=== PATIENT | female | born 1975 ===

== ENCOUNTER 2023-09-30 19:58 | Emergency (ER) | payer OTHER, SELFPAY ==
[2023-09-30 20:05] VITALS: BP 120/73
[2023-09-30 20:18] LABS: % Basophils 0.7 % (0-2); % Eosinophils 0.4 % (0-6); % Immature Granulocytes 0.3 % (0-0.5); % Lymphocytes 32.4 % (20.5-51.1); % Neutrophils 61.2 % (42.2-75.2); Absolute Basophils 0.1 10^3/uL (0-0.2); Absolute Lymphocytes 2.4 10^3/uL (1.2-3.4); Absolute Monocytes 0.4 10^3/uL (0.1-0.6); Absolute Neutrophils 4.6 10^3/uL (1.4-6.5); Hematocrit 36.9 % (37.0-47.0); Hemoglobin 12.4 g/dL (12.0-16.0); Mean Corp Hgb Conc. 33.6 g/dL (33.0-37.0); Mean Corpuscular Hgb 27.9 pg (27.0-31.0); Mean Corpuscular Volume 83.1 fL (81.0-99.0); Mean Platelet Volume 10.4 fL (7.4-10.4); Nucleated Red Blood Cells % 0 %; Platelet Count 251 10^3/uL (130-400); Red Blood Cell Count 4.44 10^6/uL (4.20-5.40); Red Cell Dist. Width 12.5 % (11.5-14.5); White Blood Cell Count 7.4 10^3/uL (4.8-10.8)
[2023-09-30 20:36] LABS: ALT (SGPT) 18 U/L (0-35); AST (SGOT) 26 U/L (14-36); Albumin 4.7 g/dl (3.5-5.0); Alkaline Phosphatase 55 U/L (38-126); Blood Urea Nitrogen 15 mg/dl (7-17); Calcium 9.9 mg/dl (8.4-10.2); Carbon Dioxide 28 mmol/L (22-30); Chloride 103 mmol/L (98-107); Glucose 117 mg/dl (70-99); Potassium 3.9 mmol/L (3.5-5.1); Sodium 137 mmol/L (135-145); Total Bilirubin 0.5 mg/dl (0.2-1.3); eGFR > 60.00
[2023-09-30 20:40] LABS: Troponin I < 0.012 ng/ml
--- NOTE | 2023-09-30 21:08 | ED.GENMED ---
History of Present Illness
General
Chief Complaint: Chest Pain
Time Seen by Provider: 09/30/23 21:08
Travel History
Have you had any contact with someone who has COVID-19?: No
Do you have any symptoms of coronavirus? Fever > 100 degrees, chills, cough, shortness of breath, sore throat, loss of taste or smell, muscle aches, or headache?: No
History of Present Illness
History of Present Illness:
HPI: The patient presents with chest pressure over the past 1 to 2 weeks. These are associate with palpitations. It is not necessarily exertional in nature. She has no significant shortness of breath. She had some bilateral lower extremity
cramping/myalgias without any edema. She saw cardiology 2 days ago who encouraged her to come to the ER if her symptoms persist/worsen. She states that she has a stress test next month.
EXAM:
GENERAL: Well appearing in no distress
HEENT: Moist oral mucosa
CARDIOVASCULAR: No murmurs, normal heart rate, regular rhythm, No chest wall tenderness
PULMONARY: No respiratory distress, breath sounds are clear and equal
ABDOMEN: Soft with no peritoneal signs, no tenderness
NEUROLOGIC: Excellent strength all extremities, no coordination deficits
PSYCHIATRIC: Appropriate mental status, normal insight and judgement
EXTREMITIES: Nontender, no edema, moves all extremities equally
SKIN: No rash, no lesions
TIME OF INITIAL ENCOUNTER: 9:15 PM
NUMBER AND COMPLEXITY OF PROBLEMS ADDRESSED AT THE ENCOUNTER
� Chronic conditions affecting care: Hyperlipidemia
� Acute Exacerbation and/or Progression of Chronic Illness: This is an acute problem
� Differential Diagnosis includes: Costochondritis, chest wall pain ACS unlikely, pneumothorax, nonspecific palpitations
AMOUNT AND/OR COMPLEXITY OF DATA TO BE REVIEWED AND ANALYZED
� I performed an independent evaluation of and my interpretation is:
EKG: Sinus 63, normal axis, no acute ST abnormality, slightly poor R wave progression�I compared this to another EKG�today's overall is improved compared to prior
CT:
X-rays: Chest x-ray shows no acute abnormality.
Laboratory Studies: CBC, chemistries, and troponin are all negative
Other:
� Review of other/old records: I reviewed echo from 04/29/2023 that was unremarkable including no regional wall motion abnormality and EF was 60%
� Clinical information was obtained by an independent historian: I spoke to the daughter at bedside
� Prescriptions/Medications Considered but not given:
� Further testing considered but not performed:
RISK OF COMPLICATIONS AND/OR MORBIDITY OR MORTALITY OF PATIENT MANAGEMENT
� Social determinants of health affecting care: Lives at home
� Discussion with other providers:
� Escalation of care including admission/observation vs risk of discharge considered: I reviewed the EKG from the public relations officer office which does show some poor R wave progression but overall the EKG today is improved compared to
a few days ago. Troponin is negative despite over a week of symptoms. Vital signs are unremarkable. She is very well-appearing. On reassessment at 10:15 PM, the patient appears very comfortable. We talked about maybe trying some Motrin as an
outpatient. She appears comfortable at time of discharge.
Phy Exam
Physical Exam
Physical Exam:
See HPI
Scores
Heart Score for Chest Pain Patients
STEMI patient?: Not applicable
Course
Orders/Labs/Results
Orders:
Orders
09/30/23 20:00
Electrocardiogram (*1) Urgent
Reason for Study: Chest Pain
EKG- Treatment ONCE
09/30/23 20:10
Comprehensive Metabolic Panel Urgent
09/30/23 20:11
Complete Blood Count/With Diff Urgent
Troponin I Urgent
09/30/23 21:17
CR Chest - 2 Views Urgent
Comment:
Reason For Exam: cp
Abnormal Lab Results
09/30/23 09/30/23
20:10 20:11
Hct 36.9 L %
(37.0-47.0)
Glucose 117 H mg/dl
(70-99)
09/30/23 20:11
09/30/23 20:10
Vital Signs
Initial and Last Documented VS:
Initial Vital Signs
Temp Pulse Resp BP Pulse Ox
98.1 F 67 16 120/73 99
09/30/23 20:05 09/30/23 20:05 09/30/23 20:05 09/30/23 20:05 09/30/23 20:05
Last Documented Vital Signs
Temp Pulse Resp BP Pulse Ox
98.1 F 67 16 120/73 99
09/30/23 20:05 09/30/23 20:05 09/30/23 20:05 09/30/23 20:05 09/30/23 20:05
*Critical Care Note
Total Time (30-74mins, 75-104mins- exclusive of procedures): Not Applicable
ED Attending Note
-
Portions of this chart may have been created with voice recognition software.� Occasional wrong word or��sound alike� substitutions may have occurred due to the inherent limitations of voice recognition software.
Discharge Plan
Departure
Referrals:
Marcelle Simmons MD [Family Provider] -
Interventions
Interventions:
*Risk Screen - Suicide Last Done: 09/30/23 20:05
*General Assessment Last Done: 09/30/23 20:05
*Neglect/Abuse Screening Last Done: 09/30/23 20:05
ED- Fall Risk Assessment Last Done: 09/30/23 21:08
*ED COVID-19 Vaccine History Last Done: 09/30/23 20:05
ED- Cardiac Assessment Last Done: 09/30/23 21:08
Discharge Date and Time
Print Language: CITIZEN OF [place]
== END 2023-09-30 22:45 | disposition home or self-care (01) ==
LOC: EMR 19:58
PROVIDERS: Emergency Medicine; EMERGENCY PHYSICIAN Emergency Medicine; FAMILY PHYSICIAN Internal Medicine
DX: R07.89 Other chest pain (principal); R00.2 Palpitations
CPT/HCPCS: 99283; 71046; 80053; 84484; 85025; 93005

== ENCOUNTER 2023-11-24 19:30 | Emergency (ER) | payer OTHER, SELFPAY ==
[2023-11-24 19:37] VITALS: BP 129/66
[2023-11-24 22:30] VITALS: BP 114/70
--- NOTE | 2023-11-24 22:50 | ED.GENMED ---
History of Present Illness
General
Chief Complaint: Medication Reaction
Source: patient
Exam Limitations: none
Time Seen by Provider: 11/24/23 22:29
Travel History
Have you had any contact with someone who has COVID-19?: No
Do you have any symptoms of coronavirus? Fever > 100 degrees, chills, cough, shortness of breath, sore throat, loss of taste or smell, muscle aches, or headache?: No
History of Present Illness
History of Present Illness:
48-year-old otherwise healthy female presents complaining of onset of body shakes electric pain chills and sweats. This was preceded by cold sores that showed up on her. She took 1500 mg of famciclovir and later that evening which was 2 nights ago
she developed a shooting pain. She feels as though she had a reaction to the antiviral medicine. The shooting pain has since resolved. She feels off since then . She hasn't taken any other medicine since. No other complaints at this time.
Phy Exam
Physical Exam
Physical Exam:
General: Well-appearing female no acute respiratory distress
HEENT: Normocephalic atraumatic posterior pharynx without erythema. No trismus or drooling neck is supple no adenopathy. Small cold sores noted over the upper lip.
Heart: Regular rate and rhythm no murmurs
Lungs: Clear no wheeze or rales
Abdomen soft nontender nondistended no guarding rebound normal bowel sounds extremities: No cyanosis
Skin: Warm no rash
Course
Orders/Labs/Results
Orders:
Orders
11/24/23 22:53
Complete Blood Count/With Diff Urgent
Comprehensive Metabolic Panel Urgent
11/24/23 22:54
Diphenhydramine [Benadryl] 25 mg IV NOW STA
11/24/23 23:04
0.9% Sodium Chloride 1000 ml [Nss] 1,000 ml IV BOLUS
11/24/23 23:12
Amoxicillin 875 mg/Clav 125 mg [Augmentin 875 mg/125 mg] 2 tablet PO NOW STA
Abnormal Lab Results
11/24/23
22:53
RBC 4.12 L 10^6/uL
(4.20-5.40)
Hgb 11.5 L g/dL
(12.0-16.0)
Hct 34.6 L %
(37.0-47.0)
MPV 10.5 H fL
(7.4-10.4)
11/24/23 22:53
11/24/23 22:53
Vital Signs
Initial and Last Documented VS:
Initial Vital Signs
Temp Pulse Resp BP Pulse Ox
98.1 F 59 18 129/66 98
11/24/23 19:37 11/24/23 19:37 11/24/23 19:37 11/24/23 19:37 11/24/23 19:37
Last Documented Vital Signs
Temp Pulse Resp BP Pulse Ox
98.3 F 55 14 108/73 99
11/24/23 23:32 11/24/23 23:32 11/24/23 23:32 11/24/23 23:32 11/24/23 23:32
MDM/Problems Addressed
Differential Diagnosis Includes:
Generalized unwell sensation with chills myalgias cold sores. Suspect underlying viral illness. Patient concerned about potential kidney dysfunction or electrolyte abnormality secondary to possible reaction to antiviral medicine. Will check labs.
Benadryl ordered IV
*Critical Care Note
Total Time (30-74mins, 75-104mins- exclusive of procedures): Not Applicable
Update Note
Update Note:
Labs reviewed without significant finding. Patient was hydrated given Benadryl for possible medication reaction. No indication for admission but stable for discharge
ED Attending Note
-
Portions of this chart may have been created with voice recognition software.� Occasional wrong word or��sound alike� substitutions may have occurred due to the inherent limitations of voice recognition software.
Discharge Plan
Departure
Patient Disposition: Home (Routine Discharge)
Date of Disposition: 11/24/23
Time of Disposition: 23:39
Patient with high blood pressure during this ER visit?: No
Discharge Problem:
Acute viral syndrome
Instructions: Adverse Drug Reactions, Adult ED
Referrals:
Marcelle Simmons MD [Family Provider] -
Activity Restrictions/Additional Instructions:
Rest. Drink plenty of fluids. You may use Benadryl as needed for itchiness. Return if worse otherwise follow-up with your family doctor
Interventions
Interventions:
*Risk Screen - Suicide Last Done: 11/24/23 19:37
*General Assessment Last Done: 11/24/23 19:37
*Neglect/Abuse Screening Last Done: 11/24/23 19:37
ED- Fall Risk Assessment Last Done: 11/24/23 22:35
*ED COVID-19 Vaccine History Last Done: 11/24/23 22:38
ED-Skin Assessment Last Done: 11/24/23 23:20
ED- Pulmonary Assessment Last Done: 11/24/23 23:20
ED-EENT Assessment Last Done: 11/24/23 22:30
Discharge Date and Time
Print Language: [place]
[2023-11-24 22:58] LABS: % Basophils 0.6 % (0-2); % Eosinophils 0.3 % (0-6); % Immature Granulocytes 0.3 % (0-0.5); % Lymphocytes 34.4 % (20.5-51.1); % Monocytes 8.7 % (1.7-9.3); % Neutrophils 55.7 % (42.2-75.2); Absolute Lymphocytes 2.3 10^3/uL (1.2-3.4); Absolute Monocytes 0.6 10^3/uL (0.1-0.6); Absolute Neutrophils 3.8 10^3/uL (1.4-6.5); Hematocrit 34.6 % (37.0-47.0); Hemoglobin 11.5 g/dL (12.0-16.0); Mean Corp Hgb Conc. 33.2 g/dL (33.0-37.0); Mean Corpuscular Hgb 27.9 pg (27.0-31.0); Mean Platelet Volume 10.5 fL (7.4-10.4); Nucleated Red Blood Cells % 0 %; Platelet Count 222 10^3/uL (130-400); Red Blood Cell Count 4.12 10^6/uL (4.20-5.40); Red Cell Dist. Width 12.7 % (11.5-14.5); White Blood Cell Count 6.8 10^3/uL (4.8-10.8)
[2023-11-24 23:19] LABS: ALT (SGPT) 17 U/L (0-35); AST (SGOT) 25 U/L (14-36); Albumin 4.3 g/dl (3.5-5.0); Alkaline Phosphatase 53 U/L (38-126); Blood Urea Nitrogen 12 mg/dl (7-17); Calcium 9.8 mg/dl (8.4-10.2); Carbon Dioxide 26 mmol/L (22-30); Chloride 106 mmol/L (98-107); Glucose 92 mg/dl (70-99); Potassium 4.1 mmol/L (3.5-5.1); Sodium 140 mmol/L (135-145); Total Bilirubin 0.6 mg/dl (0.2-1.3); Total Protein 6.7 g/dl (6.3-8.2); eGFR > 60.00
[2023-11-24] MEDS: BENADRYL 25 MG IV (23:24)
[2023-11-24] MEDS: NSS 1000 IV (23:31)
[2023-11-24 23:32] VITALS: BP 108/73
== END 2023-11-25 00:05 | disposition home or self-care (01) ==
LOC: EMR 19:30
PROVIDERS: Physician Assistant; EMERGENCY PHYSICIAN Emergency Medicine; FAMILY PHYSICIAN Internal Medicine
DX: B34.9 Viral infection, unspecified (principal); B00.1 Herpesviral vesicular dermatitis
CPT/HCPCS: 99283; 96374; 96361; 80053; 85025